=== PATIENT | female | born 1950 | race African-American/Black ===

== ENCOUNTER 2016-11-30 19:34 | Inpatient (IN) | payer MEDICARE, OTHER, MEDICAID ==
[~2016-11-30] VITALS: Ht 165.1 cm; Wt 78.0 kg
[2016-11-30] MEDS ORDERED: SODIUM CHLORIDE 0.9% 1,000 ML IV ONE (19:55)
[2016-11-30] MEDS ORDERED: DEXTROSE 50% WATER 50ML SYRINGE IV ONE ×3 (20:00→23:15)
[2016-11-30 20:28] LABS: BASOPHILS % 0.7 % (0.0-2.0); DIFFERENTIAL COMMENT 0; EOSINOPHILS % 1.8 % (0.0-5.0); HEMATOCRIT. 31.3 % (36.0-48.0); HEMOGLOBIN. 10.1 g/dL (12.0-16.0); LYMPHOCYTES % 18.2 % (20.0-50.0); MEAN CORPUSCULAR HEMOGLOBIN 32.8 pg (28.0-32.0); MEAN CORPUSCULAR HGB CONC 32.3 g/dL (31.0-37.0); MEAN CORPUSCULAR VOLUME 101.5 fL (81.0-99.0); MEAN PLATELET VOLUME 8.8 fl (7.4-10.4); MONOCYTES % 7.5 % (2.0-8.0); NEUTROPHILS % 71.8 % (40.0-76.0); PLATELET 148 x1000/uL (130-400); RED BLOOD CELL COUNT 3.08 mill/uL (4.2-5.4); RED CELL DISTRIBUTION WIDTH 15.2 % (11.6-14.6); WHITE BLOOD COUNT 4.5 x1000/uL (4.5-11.0)
[2016-11-30 20:35] LABS: INR 1.3; PARTIAL THROMBOPLASTIN TIME 32.7 sec (24.0-34.0); PROTHROMBIN TIME 13.5 sec
[2016-11-30 20:43] LABS: ALANINE AMINOTRANSFERASE 19 IU/L (13-61); ALBUMIN 2.2 g/dL (3.4-5.0); ANION GAP 13; CARBON DIOXIDE 22 mEq/L (21-32); CHLORIDE 111 mEq/L (98-107); ETHANOL BLOOD < 10 mg/dL; INDEX HEMOLYSI 1 (1-3); INDEX ICTERIC 1 (1-4); INDEX LIPEMIC 1 (1-3); LIPASE 95 IU/L (73-393); NT PRO B-TYPE NATRIURETIC PEP 919 pg/mL (5-125); TROPONIN I 0.02 ng/mL (0.00-0.04); UREA NITROGEN BLOOD 23 mg/dL (7-21); eGFR 30 mL/min (>60)
[2016-11-30] MEDS ORDERED: DOCUSATE SODIUM 100MG CAPSULE PO PRN (21:45)
[2016-11-30] MEDS ORDERED: CLONIDINE 0.1MG TABLET PO PRN (21:45)
[2016-11-30] MEDS ORDERED: GUAIFENESIN 200MG/10ML SUGAR FREE UDC PO PRN (21:45)
[2016-11-30] MEDS ORDERED: ACETAMINOPHEN 325MG TABLET PO PRN (21:45)
[2016-11-30] MEDS ORDERED: ONDANSETRON HCL 4MG/2ML VIAL IV PRN (21:45)
[2016-11-30] MEDS ORDERED: IPRATROPIUM/ALBUTEROL 0.5-3(2.5)MG/3ML NEB INH PRN (21:45)
[2016-11-30] MEDS ORDERED: DEXTROSE 50% WATER 50ML SYRINGE IV PRN (21:45)
[2016-11-30] MEDS ORDERED: NA PHOS,M-B/NA PHOS,DI-BA ENEMA 118ML PR PRN (21:45)
[2016-11-30] MEDS ORDERED: NITROGLYCERIN 0.4MG TABLET SL SL PRN (21:45)
[2016-11-30] MEDS ORDERED: MAGNESIUM/ALUMINUM HYDROXIDE/SIMETHICONE 30ML UDC PO PRN (21:45)
[2016-11-30 22:10] LABS: CLARITY URINE CLEAR (CLEAR); COLOR URINE YELLOW (YELLOW); GLUCOSE URINE NEGATIVE (NEGATIVE); KETONES URINE NEGATIVE (NEGATIVE); LEUKOCYTE ESTERASE URINE TRACE (NEGATIVE); NITRITE URINE NEGATIVE (NEGATIVE); OCCULT BLOOD URINE NEGATIVE (NEGATIVE); PROTEIN URINE 2+ (NEGATIVE); SPECIFIC GRAVITY URINE 1.014 (1.005-1.030); UROBILINOGEN URINE 0.2 E.U./dL (0.2-1.0)
[2016-11-30] MEDS ORDERED: LEVOFLOXACIN 250MG PREMIX 50 ML IV ONE (22:15)
[2016-11-30 22:30] LABS: INDEX HEMOLYSI 1 (1-3)
[2016-11-30 22:36] LABS: BACTERIA URINE TRACE; RBC URINE NONE SEEN /hpf (0-2); SQUAMOUS EPITHELIAL CELL URINE RARE /lpf (RARE/1+); WBC URINE 15-25 /hpf (0-2)
[2016-11-30 22:46] LABS: VITAMIN B12 SERUM 1438 pg/mL (211-911)
[2016-11-30 22:48] LABS: FOLIC ACID (FOLATE) SERUM > 20.00 ng/mL (>5.38)
[2016-11-30] MEDS ORDERED: DEXT 10% WATER 1,000 ML IV ONE (23:01)
[2016-11-30 23:58] LABS: CREATINE KINASE MB FRACTION 5.9 ng/mL (0.5-3.6); TROPONIN I 0.04 ng/mL (0.00-0.04)
[2016-12-01] VITALS (8 sets, daily range): BP systolic 108–182; BP diastolic 61–111
[2016-12-01] MEDS ORDERED: KCL 20MEQ/100ML PREMIX 100 ML IV NR ×3 (01:00→04:00)
[2016-12-01] MEDS: TRAMADOL 50MG TABLET PO PRN ×2 (01:58→08:41)
[2016-12-01] MEDS: DEXT 5%/0.45% NACL 1000ML 1,000 ML IV SCH ×2 (02:03→16:15)
[2016-12-01] MEDS ORDERED: HUM100IN SQ ×2 (02:48)
[2016-12-01] MEDS ORDERED: LEVOFLOXACIN 500MG PREMIX 100 ML IV NR (03:00)
[2016-12-01] MEDS: BLOOD SUGAR DIAGNOSTIC STRIP TEST SCH ×3 (05:55→16:22)
[2016-12-01] MEDS: INSULIN LISPRO 100 UNITS/ML SUBCUT SCH ×3 (06:15→16:22)
[2016-12-01 06:22] LABS: CREATINE KINASE MB FRACTION 5.3 ng/mL (0.5-3.6); TROPONIN I 0.04 ng/mL (0.00-0.04)
[2016-12-01] MEDS ORDERED: ZINC SULFATE 220 MG ( 50 ) CAPSULE PO SCH (09:00)
[2016-12-01] MEDS ORDERED: ENOXAPARIN 30MG/0.3ML SYR SUBCUT SCH (09:00)
[2016-12-01] MEDS ORDERED: AMLODIPINE 10MG TABLET PO SCH (09:00)
[2016-12-01] MEDS ORDERED: PANTOPRAZOLE SODIUM 40 MG/VIAL IV SCH (09:00)
[2016-12-01] MEDS ORDERED: LISINOPRIL 20MG TABLET PO SCH (09:00)
[2016-12-01] MEDS ORDERED: ASPIRIN 325MG EC TABLET PO SCH (09:00)
[2016-12-01] MEDS ORDERED: OXYCODONE HCL/ACETAMINOPHEN 5/325MG TABLET PO PRN (12:30)
[2016-12-02] MEDS ORDERED: LEVOFLOXACIN 250MG PREMIX 50 ML IV SCH (02:00)
== END 2016-12-01 21:20 | disposition short-term general hospital (02) | DRG 637 ==
LOC: ER 19:35 → 5WST 21:09 → SUPCPDRO 21:09
PROVIDERS: ADMIT Internal Medicine; ATTEND Internal Medicine
DX: E11.649 Type 2 diabetes mellitus with hypoglycemia without coma (principal); E43 Unspecified severe protein-calorie malnutrition; G93.40 Encephalopathy, unspecified; N39.0 Urinary tract infection, site not specified; D64.9 Anemia, unspecified; E87.6 Hypokalemia; I10 Essential (primary) hypertension; G89.29 Other chronic pain; M54.9 Dorsalgia, unspecified; D63.8 Anemia in other chronic diseases classified elsewhere; N17.0 Acute kidney failure with tubular necrosis; Z88.0 Allergy status to penicillin; Z68.28 Body mass index [BMI] 28.0-28.9, adult; Z79.4 Long term (current) use of insulin
CPT/HCPCS: 36415; 70450; 71010; 80053; 80061; 81001; 82550; 82553; 82607; 82746; 82962; 83036; 83540; 83550; 83605; 83690; 83880; 84484; 85025; 85610; 85730; 87040; 87086; 93005; 93970; 96360; 99291; C9113; G0482; J1650; J1815; J1956; J3480; J7030